=== PATIENT | female | born 1995 | race Caucasian/White ===

== ENCOUNTER 2016-08-21 22:22 | Emergency (ER) | payer SELFPAY ==
--- NOTE | ~2016-08-21 | CR63 ---
[facility] A Service of [facility] RADIOLOGY TEXT RESULTS PATIENT: ROLDAN DURÁN LOCATION: [facility] : 95 UNIT #: [id number] AGE: [address]: Noris Lucas APRN SEX: F ORDER DR: [id number] [place], [place] [address] [id number] MR#: [id number] Acc #: [id number] NAME: ROLDAN DURÁN. : 1995 SEX: F STUDY DATE/TIME: 08/21/2016 23:46 UNIT: [facility] ROOM: STUDY DESCRIPTION: CR Chest 2 View Attending Physician: Noris Lucas A.P.R.N. Ordering Physician: Noris Lucas A.P.R.N. Primary Care Physician: [facility], [facility] MEDICAL IMAGING REPORT This report is preliminary unless electronic signature is present EXAM Chest 2 views 08/21/2016 INDICATION 21-year-old female with cough, short of air, epigastric pain 2 weeks. Symptoms not going away. TECHNIQUE 2 view chest. COMPARISON None. FINDINGS Cardiac silhouette is within normal limits. The vascularity is normal. Lungs are clear. IMPRESSION Negative chest. We have no comparisons. Dictated by... Nicolas Win M.D. THIS IS AN ELECTRONICALLY VERIFIED REPORT Nicolas Win M.D. at 08/22/2016 9:53 PM EDUARDO/shreya TD: 08/22/2016 07:19 JOB #: [id number] MEDICAL IMAGING REPORT [facility] A Service [facility] RADIOLOGY TEXT RESULTS PATIENT: ROLDAN DURÁN LOCATION: [facility] : 95 UNIT #: [id number] AGE: [address]: Noris Lucas APRN SEX: F ORDER DR: Page 1 of 1 COPY
[~2016-08-21 22:22] MED LIST: BACTRIM DS TABL1 TA1 PO; BACTROBAN22 GM; CIPRO PO; CLARITIN10 MG; DIFLUCAN PO; IBUPROFEN800 MG PO; LAMICTAL PO; MOTRIN600 MG PO; ORUDIS75 M1 DOB; PEN-VEE K PO; PROVERA10 MG PO; PYRIDIUM PO; ZOFRAN ODT4 MG PO
[2016-08-21 23:01] LABS: URINE SOURCE CLEAN CATCH
[2016-08-21 23:05] LABS: URINE APPEARANCE CLOUDY; URINE BILIRUBIN NEG (NEG); URINE BLOOD NEG (NEG); URINE COLOR YELLOW; URINE GLUCOSE NEG (NEG); URINE KETONE NEG (NEG); URINE LEUKOCYTE ESTERASE 1+ (NEG); URINE NITRATE NEG (NEG); URINE PROTEIN NEG (NEG); URINE SPECIFIC GRAVITY 1.027 (1.003-1.035)
[2016-08-21 23:06] LABS: BASOPHIL% 0.2 % (0-2.5); DIFF IND NO; EOSINOPHIL# 0.2 X10e3 (0-0.7); EOSINOPHIL% 1.9 % (0.0-7.0); HEMATOCRIT 42.9 % (35.0-45.0); HEMOGLOBIN 14.2 gm/dL (12.0-16.0); LYMPHOCYTE% 37.7 % (17.0-45.0); MEAN CELL VOLUME 93.9 FL (83-96); MEAN CORPUSCULAR HEMOGLOBIN 31.2 PG (28-34); MEAN CORPUSCULAR HGB CONC 33.2 g/dL (30-36); MEAN PLATELET VOLUME 7.9 FL (6.5-11.5); MONOCYTE# 0.7 X10e3 (0-1.0); NEUTROPHIL# 5.7 X10e3 (1.5-7.1); NEUTROPHIL% 53.2 % (40-75); PLATELET COUNT 259 X10e3 (140-420); RED BLOOD COUNT 4.56 X10e (3.90-5.30); RED CELL DISTRIBUTION WIDTH 13.1 % (11.0-15.5); WHITE BLOOD COUNT 10.7 X10e3 (4.0-10.5)
[2016-08-21 23:08] LABS: CULTURE INDICATED? YES; URINE BACTERIA AUWI 2+ (NEGATIVE); URINE SQUAMOUS EPITHELIAL CELL FEW /[HPF]
[2016-08-21 23:19] LABS: PARTIAL THROMBOPLASTIN TIME 28.1 SECONDS (23.5-31.3); PROTHROMBIN TIME (PATIENT) 10.4 SECONDS (9.6-11.5)
[2016-08-21 23:21] LABS: AMPHETAMINE NEG (NEG); BARBITURATES NEG (NEG); BENZODIAZEPINES NEG (NEG); COCAINE NEG (NEG); MARIJUANA POS (NEG); OPIATES NEG (NEG); TRICYCLIC ANTIDEPRESSANTS NEG (NEG); U METHADONE NEG (NEG)
[2016-08-21 23:26] LABS: ALBUMIN SERUM 3.8 g/dL (3.5-5.0); BILIRUBIN,TOTAL 0.1 mg/dL (0.2-2.0); BUN/CREATININE RATIO 18.57; CALCIUM SERUM 8.5 mg/dL (8.4-10.2); CREATININE SERUM 0.7 mg/dL (0.6-1.4); GLOM FILT RATE Estimated 123.9 mL/min (>60); POTASSIUM 3.9 mmol/L (3.5-5.1); PROTEIN TOTAL SERUM 6.5 g/dL (6.0-8.3)
[2016-08-22 00:01] LABS: POC - CKMB <1.0 ng/mL (0.0-7.9); POC - TROPONIN <0.05 ng/mL (<=0.05)
== END 2016-08-22 00:35 | disposition home or self-care (01) ==
LOC: CFTX 22:22
PROVIDERS: Nurse Practitioner
DX: R07.89 Other chest pain (principal); R05 Cough; N39.0 Urinary tract infection, site not specified; F31.9 Bipolar disorder, unspecified; Z98.890 Other specified postprocedural states
CPT/HCPCS: 36415; 71020; 80053; 80307; 81003; 82553; 84484; 84703; 85025; 85610; 85730; 87086; 93005; 96372; 99284; J1885